=== PATIENT | male | born 1935 | race Caucasian/White ===

== ENCOUNTER 2018-07-30 14:05 | Emergency (ER) | payer MEDICARE, OTHER ==
[~2018-07-30] VITALS: Ht 175.3 cm; Wt 116.8 kg
[~2018-07-30 14:05] MED LIST: CITRATE OF MAG296 ML PO; COUMADIN 5 MG TA5 M1 PO; FOLIC ACID1 MG PO; HYDROCODONE-AP1 EAC6 PO; HYTRIN 5 M5 MG/1 CAP PO; JANTOVEN7.5 MG PO; LISINOPRIL10 MG PO; METFORMIN HCL500 M2 PO; MOBIC15 MG PO; SIMVASTATIN40 MG PO; SULFAZINE EC500 MG PO; TRAMADOL 50 MG50 MG PO
[2018-07-30] MEDS ORDERED: NORCO 5-325 TA1 EACH PO (15:45)
[2018-07-30 15:55] VITALS: BP 133/67
== END 2018-07-30 15:56 | disposition home or self-care (01) ==
LOC: M.ERS 14:05
DX: M25.572 Pain in left ankle and joints of left foot (principal); E11.9 Type 2 diabetes mellitus without complications; I10 Essential (primary) hypertension; Z87.442 Personal history of urinary calculi; Z86.718 Personal history of other venous thrombosis and embolism; Z86.711 Personal history of pulmonary embolism

== ENCOUNTER → 2019-09-17 | Outpatient (CLI) | payer MEDICARE, OTHER ==
[~2019-09-17] MED LIST changes: +NORCO 5-325 TA1 EACH PO
[2019-09-17 07:58] LABS: CREATININE 1.4 mg/dL (0.6-1.3)
== END ==
LOC: M.LAB 05:29 → M.MRI 07:30
PROVIDERS: Internal Medicine Hematology & Oncology
DX: N28.1 Cyst of kidney, acquired (principal); R16.2 Hepatomegaly with splenomegaly, not elsewhere classified

== ENCOUNTER 2019-11-04 11:19 | Inpatient (IN) | payer MEDICARE, OTHER ==
[~2019-11-04] VITALS: Ht 177.8 cm; Wt 117.9 kg
[2019-11-04 11:45] VITALS: BP 169/65
[2019-11-04] MEDS ORDERED: ALLOPURINOL 10100 M3 PO (11:49)
[2019-11-04] MEDS ORDERED: FLOMAX0.4 MG PO (11:50)
[2019-11-04 12:35] LABS: ABSOLUTE LYMPHOCYTES 1.3 thou/uL (0.8-5.3); ABSOLUTE MONOCYTES 1.3 thou/uL (0.0-1.2); ABSOLUTE NEUTROPHILS 6.5 thou/uL (1.6-8.1); BASOPHILS 0.5 %; EOSINOPHILS 0.3 %; HEMOGLOBIN 13.9 gm/dL (14.0-18.0); LYMPHOCYTES 14.6 %; MCH 30.9 pg (26.0-34.0); MCHC 33.9 g/dL (28.0-37.0); MCV 91.1 fL (80.0-100.0); MONOCYTES 14.5 %; MPV 6.9 fl. (7.2-11.1); NUCLEATED RBCS 0 /100WBC; PLATELET COUNT* 130 thou/uL (150-400); POLYS 70.1 %; RDW-CV 18.8 % (10.5-14.5); WBC 9.2 thou/uL (4.0-11.0)
[2019-11-04 12:44] LABS: CALCIUM 8.5 mg/dL (8.5-10.1); CREATININE 1.3 mg/dL (0.6-1.3); POTASSIUM 4.3 mmol/L (3.5-5.1)
[2019-11-04 12:55] LABS: ALBUMIN 3.4 g/dL (3.4-5.0); TOTAL BILIRUBIN 0.8 mg/dL (<0.1-1.0); TOTAL PROTEIN 7.9 g/dL (6.4-8.2)
--- NOTE | 2019-11-04 13:59 | NUR ---
CAME OUT ROOM PT HAVING SEIZURE. 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 PT TRANSPORTED TO CT VIA STRETCHER ON MONITOR WITH [employer] TECH
[2019-11-04 15:29] LABS: URINE BILIRUBIN NEGATIVE (Negative); URINE BLOOD NEGATIVE (Negative); URINE CLARITY CLEAR; URINE COLOR YELLOW; URINE GLUCOSE-RANDOM NEGATIVE (Negative); URINE KETONES NEGATIVE (Negative); URINE LEUKOCYTES-REFLEX NEGATIVE (Negative); URINE NITRITE-REFLEX NEGATIVE (Negative); URINE PROTEIN NEGATIVE (Negative); URINE SPECIFIC GRAVITY 1.025 (1.005-1.030); URINE UROBILINOGEN 0.2 E.U./dl (0.2-1.0)
[2019-11-04 15:34] VITALS: BP 143/68
--- NOTE | 2019-11-04 15:50 | NUR ---
RECEIVED PATIENT BY CART TO PREOP FROM ER FOR BOARDING. PATIENT ALERT AND ORIENTED AND CONVERSING. X2 PERSON TRANSFER FROM CART TO THE BED, PATIENT RELATIVELY WEAK. VS STABLE. NO FAMILY PRESENT DURING TRANSFER. IV ZITHROMYCIN INFUSING UPON ARRIVAL. O2 SAT SHOWING 88-90% ON ROOM AIR. O2 APPLIED AT 2L NC. O2 SAT IMPROVED TO 93% ON 2L NC. RT FOREARM IV IN PLACE. BELONGINGS WITH PATIENT. ORDERS REVIEWED FROM ER. PATIENT DENIES PAIN OR CONCERNS. REFUSING ORAL LIQUIDS AT THIS TIME. DIET ORDERED FOR DINNER.
[2019-11-04 16:00] VITALS: BP 143/67
--- NOTE | 2019-11-04 17:30 | NUR ---
PATIENT TRANSFERRED BY BED TO 311. SON ARRIVAL TO ROOM SHORTLY AFTER TRANSFER. BELONGINGS WITH PATIENT. SON TOOK WALLET, CRUTCHES, AND COAT HOME. PATIENT DENIES PAIN. TAKING IN ORAL LIQUIDS WITHOUT NAUSEA. REPORT TO BEN MORALES. PATIENT DENIES OTHER CONCERNS. CALL LIGHT AND REMOTE WITHIN REACH.
[2019-11-04 17:48] VITALS: BP 128/58
--- NOTE | 2019-11-04 18:08 | NUR ---
PT TO UNIT FROM PACU APPROX 1730 ON [facility] BED.VSS. PT REPORTS REDNESS/SWELLING TO LLE. CXR + FOR PNA. PT UP WITH ASSIST X2 AND GAIT BELT. IV TO RFA, NS AT 100ML/HR. REGULAR DIET. SPUTUM CULTURE ORDERED, BUT UNABLE TO COLLECT AT THIS TIME. PT IN ROOM WITH CALL LIGHT IN REACH. FAMILY AT BEDSIDE. WILL CONTINUE TO MONITOR.
[2019-11-04] MEDS ORDERED: SENNA PLUS TAB1 EACH PO (18:23)
[2019-11-04 19:30] VITALS: BP 132/62
[2019-11-04 20:32] LABS: URIC ACID* 3.8 mg/dL (2.6-7.2)
--- NOTE | 2019-11-05 05:51 | NUR ---
PT ALERT AND ORIENTED. VSS ON RA. HOME MEDS RESTARTED AND GIVEN ORDERED. PT SLEPT WELL THIS SHIFT. PT TO BATHROOM STB ASSIST. PT DENIES PAIN THIS SHIFT. FALL PRECAUTIONS IN PLACE. CALL LIGHT WIHTIN REACH. HOURLY ROUNDINGS MADE. WILL CONTINUE TO MONITOR.
[2019-11-05 07:30] VITALS: BP 128/53
--- NOTE | 2019-11-05 16:14 | NUR ---
SW met with pt to complete initial assessment, introduce self, and SW role. Pt alert, oriented. Pt is [place]. Pt lives at home with . Pt does not have home oxygen and says that he would refuse to wear it anyway. Pt is usually independent with mobility and ADLs. Pt has cane, crutches, RW. SW to continue to follow to assist with safe dc planning.
--- NOTE | 2019-11-05 16:27 | NUR ---
PATIENT UP WITH SBA. VOIDING PER URINAL. IVF SL THIS AFTERNOON PER ORDERS, IV ABX GIVEN ORDERED AND CHANGED TO PO STARTING TOMORROW AM. NO COMPLAINTS OF PAIN. FEET ELEVATED, EDEMA NOTED. PATIENT NOW ON SAT 94%.
[2019-11-05 16:45] VITALS: BP 147/49
[2019-11-05 19:30] VITALS: BP 130/82
[2019-11-06 05:01] LABS: ABSOLUTE LYMPHOCYTES 1.9 thou/uL (0.8-5.3); ABSOLUTE MONOCYTES 0.8 thou/uL (0.0-1.2); ABSOLUTE NEUTROPHILS 5.2 thou/uL (1.6-8.1); BASOPHILS 0.4 %; EOSINOPHILS 0.4 %; HEMATOCRIT 35.9 % (42.0-52.0); HEMOGLOBIN 12.1 gm/dL (14.0-18.0); LYMPHOCYTES 23.5 %; MCH 30.7 pg (26.0-34.0); MCHC 33.6 g/dL (28.0-37.0); MCV 91.4 fL (80.0-100.0); MONOCYTES 10.3 %; MPV 7.2 fl. (7.2-11.1); NUCLEATED RBCS 0 /100WBC; PLATELET COUNT* 124 thou/uL (150-400); POLYS 65.4 %; RBC 3.92 mil/uL (4.50-6.00); RDW-CV 18.9 % (10.5-14.5)
[2019-11-06 05:22] LABS: CALCIUM 7.7 mg/dL (8.5-10.1); CREATININE 1.4 mg/dL (0.6-1.3); URIC ACID* 4.8 mg/dL (2.6-7.2)
[2019-11-06 05:26] LABS: CHOLESTEROL 121 mg/dL (<200); HDL CHOLESTEROL 40 mg/dL (>40); LDL CHOLESTEROL 70 mg/dL (<100); SERUM ASSESSMENT CLEAR; TRIGLYCERIDE 58 mg/dL (<150); VLDL 12 mg/dL (<40)
--- NOTE | 2019-11-06 06:00 | NUR ---
PT ALERT AND ORIENTED. FORGETFUL. ASKS SAME QUESTION REPEATEDLY. VSS ON RA DURING ASSESSMENT. PT ON 2L NC VIA RT. PAIN MED GIVEN PER EMAR. NO IV ACCESS AT THIS TIME. FALL PRECAUTION IN PLACE. CALL LIGHT WITHIN REACH. HOURLY ROUNDINGS MADE. PT SLEPT WELL THIS SHIFT. JODI CONTINUE TO MONITOR.
[2019-11-06 07:50] VITALS: BP 153/73
[2019-11-06 16:00] VITALS: BP 139/61
--- NOTE | 2019-11-06 17:09 | NUR ---
PATIENT UP WITH SBA. PT/OT WORKED WITH PATIENT TODAY. NO IV ACCESS. PATIENT C/O REDNESS TO RIGHT FA, REDNESS AND SWELLING NOTED FROM OLD IV SOTE YESTERDAY, THIS WAS NEW TODAY. ICE PACK IN PLACE, DR. BARTON NOTIFIED. URINAL UTILIZED, BM NOTED TODAY.
[2019-11-06 21:00] VITALS: BP 144/58
[2019-11-06 23:10] LABS: GLYCOHEMOGLOBIN (HGB A1C) 5.4 % (4.8-5.6)
--- NOTE | 2019-11-07 06:28 | NUR ---
PATIENT SLEPT MOST OF THE NIGHT. PATIENT WAS GIVEN PAIN MEDICINE ONCE THIS SHIFT. WILL CONTINUE TO MONITOR.
[2019-11-07 07:55] VITALS: BP 146/67
[2019-11-07 16:00] VITALS: BP 128/74
--- NOTE | 2019-11-07 18:16 | NUR ---
PATIENT RESTING IN UP IN CHAIR. PATIENT IS UP STANDBY ASSIST. PATIENT HAS COMPLAINTS OF PAIN TO BLE BUT STATES IT IS SLIGHTLY BETTER THIS EVENING. PATIENT HAS GOOD APPETITE. PATIENT DENIES ANY NEEDS AT THIS TIME. CALL LIGHT WITHIN REACH.
[2019-11-07 20:30] VITALS: BP 162/66
[2019-11-08 05:24] LABS: CALCIUM 8.2 mg/dL (8.5-10.1); CREATININE 1.3 mg/dL (0.6-1.3); MAGNESIUM 1.7 mg/dL (1.8-2.4)
--- NOTE | 2019-11-08 05:40 | NUR ---
PATIENT SLEPT PART OF THE NIGHT. PATIENT DENIED THE NEED FOR ANY PRN PAIN MEDS. PATIENT COULD POSSIBLY DISCHARGE TODAY OR TOMMORROW. WILL CONTINUE TO MONITOR.
[2019-11-08 07:55] VITALS: BP 149/67
[2019-11-08] MEDS ORDERED: NEURONTIN600 MG PO (10:45)
[2019-11-08] MEDS ORDERED: COZAAR 25 MG TA25 M2 PO (10:45)
[2019-11-08] MEDS ORDERED: PREDNISONE 20 M20 MG PO (10:45)
[2019-11-08] MEDS ORDERED: GLUCOPHAGE500 MG PO (10:45)
[2019-11-08] MEDS ORDERED: CEFDINIR300 MG PO (10:45)
[2019-11-08] MEDS ORDERED: ASPIRIN325 PO (10:45)
[2019-11-08 11:55] VITALS: BP 149/67
--- NOTE | 2019-11-08 12:33 | NUR ---
[facility] NOTIFIED OF HH REFERRAL. H&P, DISCHARGE SUMMARY AND FACE SHEET FAXED. AWAITING CALL FROM [facility] HH RN. ANDREW BARLOW UPDATED.
--- NOTE | 2019-11-08 14:30 | NUR ---
PATIENT DISCHARGED TO HOME WITH HOME HEALTH. DISCHARGE ORDERS, H&P AND FACESHEETS FAXED TO [facility]. DISCHARGE PAPERS REVIEWED AND SINED. PRESCRIPTIONS AND INFORMATION SHEETS GIVEN. NO IV. PATIENT DENIES ANY FURTHER NEEDS. PATIENT TAKEN BY WHEELCHAIR TO EXIT. LEFT WITH .
--- NOTE | 2019-11-11 13:54 | EKG ---
[place] [address] ELECTROCARDIOGRAM REPORT Name: SOPHIE GOLDBERG Room: [address] IN .R.#: [id number] Admission: 11/04/19 Attend Phys: Manjula kohli Sa Discharge: 11/08/19 Date of : 37 Date of Service: 11/04/19 1340 Report #: [id number] THIS REPORT FOR: cc: Antwan Srivastava Bradley L. DO Blick, David R. MD [facility] THIS REPORT FOR: //name// [facility] ED Test Date: 2019-11-04 Test Time: 13:40:32 Pat Name: SOPHIE GOLDBERG Department: Room: [facility] Gender: M Senior Abap Developer: : 1935 Requested By: Yogi Shore Order Number: [id number] MD: Sophie Anaya Measurements Intervals [place] Rate: 77 P: 65 NE: 164 QRS: -19 QRSD: 101 T: 51 QT: 411 QTc: 466 Interpretive Statements Sinus rhythm Borderline left axis deviation Abnormal R-wave progression, late transition Compared to ECG 05/09/2013 23:32:53 No significant changes Electronically Signed On 11-04-2019 16:21:23 STUNT DOUBLE by Sophie Anaya [email or web address] <ELECTRONICALLY SIGNED> By: Sophie Anaya MD, [facility] 11/04/19 1621 1340 1340 Sophie Anaya MD, [facility] /EPI
== END 2019-11-08 14:30 | disposition home health service (06) | DRG 193 ==
LOC: M.ERS 11:19 → M.TBA-ER 14:03 → M.3W 14:03
PROVIDERS: Physician Assistant; ADMIT Family Medicine
DX: J18.9 Pneumonia, unspecified organism (principal); J80 Acute respiratory distress syndrome; K51.90 Ulcerative colitis, unspecified, without complications; M79.2 Neuralgia and neuritis, unspecified; M25.572 Pain in left ankle and joints of left foot; I10 Essential (primary) hypertension; N40.0 Benign prostatic hyperplasia without lower urinary tract symptoms; I80.8 Phlebitis and thrombophlebitis of other sites; E11.40 Type 2 diabetes mellitus with diabetic neuropathy, unspecified; E78.5 Hyperlipidemia, unspecified; M10.9 Gout, unspecified; Z91.14 Patient's other noncompliance with medication regimen; Z86.711 Personal history of pulmonary embolism; Z79.01 Long term (current) use of anticoagulants; Z87.442 Personal history of urinary calculi; Z86.718 Personal history of other venous thrombosis and embolism; Z79.84 Long term (current) use of oral hypoglycemic drugs; Z79.891 Long term (current) use of opiate analgesic; Z79.899 Other long term (current) drug therapy; Z83.3 Family history of diabetes mellitus; Z82.49 Family history of ischemic heart disease and other diseases of the circulatory system; Z87.891 Personal history of nicotine dependence

== ENCOUNTER 2020-01-18 14:05 | Inpatient (IN) | payer MEDICARE, OTHER ==
[~2020-01-18] VITALS: Ht 172.7 cm; Wt 124.9 kg
[~2020-01-18 14:05] MED LIST changes: +ALLOPURINOL 10100 M3 PO; +ASPIRIN325 PO; +CEFDINIR300 MG PO; +COZAAR 25 MG TA25 M2 PO; +FLOMAX0.4 MG PO; +GLUCOPHAGE500 MG PO; +NEURONTIN600 MG PO; +PREDNISONE 20 M20 MG PO; +SENNA PLUS TAB1 EACH PO
[2020-01-18 14:18] VITALS: BP 135/71
[2020-01-18 14:47] LABS: ABSOLUTE EOSINOPHILS 0.1 thou/uL (0.0-0.7); ABSOLUTE LYMPHOCYTES 1.2 thou/uL (0.8-5.3); ABSOLUTE MONOCYTES 1.1 thou/uL (0.0-1.2); ABSOLUTE NEUTROPHILS 5.6 thou/uL (1.6-8.1); BASOPHILS 0.6 %; EOSINOPHILS 0.8 %; HEMATOCRIT 41.5 % (42.0-52.0); HEMOGLOBIN 14.3 gm/dL (14.0-18.0); LYMPHOCYTES 14.7 %; MCH 32.8 pg (26.0-34.0); MCHC 34.4 g/dL (28.0-37.0); MCV 95.4 fL (80.0-100.0); MONOCYTES 13.7 %; MPV 6.9 fl. (7.2-11.1); NUCLEATED RBCS 0 /100WBC; PLATELET COUNT* 120 thou/uL (150-400); POLYS 70.2 %; RBC 4.35 mil/uL (4.50-6.00); RDW-CV 19.2 % (10.5-14.5); WBC 7.9 thou/uL (4.0-11.0)
[2020-01-18 15:00] LABS: ANION GAP 9 mmol/L (7-16); BUN 13 mg/dL (7-18); CALCIUM 8.7 mg/dL (8.5-10.1); CHLORIDE 103 mmol/L (98-107); CO2 26 mmol/L (21-32); CREATININE 1.4 mg/dL (0.6-1.3); GLUCOSE 132 mg/dL (70-99); POTASSIUM 4.2 mmol/L (3.5-5.1); SODIUM 138 mmol/L (136-145)
[2020-01-18 15:03] LABS: APTT 26.5 Seconds (25.0-31.3); INR 1.1; PROTIME 10.8 Seconds (9.20-11.50)
[2020-01-18 15:14] LABS: ALBUMIN 3.5 g/dL (3.4-5.0); ALKALINE PHOSPHATASE 91 U/L (46-116); CK-MB MASS < 0.5 ng/mL (<0.5-3.6); LIPASE 91 U/L (73-393); MAGNESIUM 1.7 mg/dL (1.8-2.4); NT-PRO BRAIN NAT PEPTIDE 267 pg/mL (<300); SGOT 23 U/L (15-37); SGPT 25 U/L (30-65); TOTAL BILIRUBIN 0.7 mg/dL (<0.1-1.0)
--- NOTE | 2020-01-18 15:55 | EKG ---
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
[2020-01-18 20:04] VITALS: BP 105/57
[2020-01-19] VITALS (7 sets, daily range): BP systolic 80–121; BP diastolic 46–57
[2020-01-19 12:13] LABS: CALCIUM 7.9 mg/dL (8.5-10.1)
[2020-01-19 12:15] LABS: CREATININE 2.6 mg/dL (0.6-1.3)
--- NOTE | 2020-01-19 13:54 | 2DMMODE ---
[place] [address] 2 D/M-MODE ECHOCARDIOGRAM Name: SOPHIE GOLDBERG Room: [address] IN [facility].#: [id number] Admission: 01/18/20 Attend Phys: Eboni Nelson, Discharge: Date of : 37 Date of Service: 01/19/20 1352 Report #: [id number] THIS REPORT FOR: cc: Antwan Srivastava Bradley L. DO Liston, Michael J. MD [facility] ~ APPROVED REPORT Study performed: 01/19/2020 10:38:38 EXAM: Comprehensive 2D, Doppler, and color-flow Echocardiogram Patient Location: In-Patient Room #: [facility] Status: routine BSA: 2.29 HR: 87 bpm BP: 96/54 mmHg Rhythm: NSR Other Information Study Quality: Good Indications Pericardial Effusion 2D Dimensions IVSd: 14.05 (7-11mm) LVOT Diam: 22.72 (18-24mm) LVDd: 56.16 mm PWd: 11.01 (7-11mm) Ascending Ao: 37.96 (22-36mm) LVDs: 43.27 (25-40mm) Aortic Root: 38.10 mm Volumes Left Atrial Volume (Systole) LA ESV Index: 28.60 mL/m2 Aortic Valve AoV Peak Reji.: 1.50 m/s AO Peak Gr.: 8.97 mmHg LVOT Max P.22 mmHg AO Mean Gr.: 5.15 mmHg LVOT Mean P.91 mmHg LVOT Max V: 1.52 m/s AO V2 VTI: 25.46 cm LVOT Mean V: 0.88 m/s ANNIKA (VTI): 3.84 cm2 LVOT V1 VTI: 24.12 [place] [address] 2 D/M-MODE ECHOCARDIOGRAM Name: SOPHIE GOLDBERG Room: [address] IN [facility].#: [id number] Admission: 01/18/20 Attend Phys: Eboni Nelson, Discharge: Date of : 37 Date of Service: 01/19/20 1352 Report #: [id number] Mitral Valve E/A Ratio: 0.76 MV Decel. Time: 292.14 ms MV E Max Reji.: 0.75 m/s MV PHT: 84.72 ms MVA (PHT): 2.60 cm2 TDI E/Lateral E': 8.33 E/Medial E': 9.38 Medial E' Reji.: 0.08 m/s Lateral E' Reji.: 0.09 m/s Pulmonary Valve PV Peak Reji.: 1.22 m/s PV Peak Gr.: 5.92 mmHg Tricuspid Valve RAP Estimate: 5.00 mmHg TR Peak Gr.: 34.13 mmHg RVSP: 39.00 mmHg PA Pressure: 39.00 mmHg Left Ventricle The left ventricle is normal size. There is normal LV segmental wall motion. There is normal left ventricular wall thickness. Left ventricular systolic function is normal. LVEF is 55-60%. Grade I - abnormal relaxation pattern. Right Ventricle The right ventricle is normal size. The right ventricular systolic function is normal. Atria Left atrium is moderately dilated. Right atrium is mildly dilated. Aortic Valve The aortic valve is normal in structure. No aortic regurgitation is present. There is no aortic valvular stenosis. Mitral Valve The mitral valve is normal in structure. There is no mitral valve regurgitation noted. No evidence of mitral valve stenosis. Tricuspid Valve The tricuspid valve is normal in structure. Trace tricuspid regurgitation. The RVSP is 35-40 [place] [address] 2 D/M-MODE ECHOCARDIOGRAM Name: SOPHIE GOLDBERG Room: [address]#: [id number] Admission: 01/18/20 Attend Phys: Eboni Nelson, Discharge: Date of : 37 Date of Service: 01/19/20 1352 Report #: [id number] Pulmonic Valve The pulmonary valve is normal in structure. There is no pulmonic valvular regurgitation. Great Vessels The aortic root is normal in size. IVC is normal in size and collapses >50% with inspiration. Pericardium There is a small circumferential pericardial effusion with no evidence of tamponade. <Conclusion> The left ventricle is normal size. There is normal left ventricular wall thickness. Left ventricular systolic function is normal. LVEF is 55-60%. Grade I - abnormal relaxation pattern. Left atrium is moderately dilated. Right atrium is mildly dilated. Trace tricuspid regurgitation. The RVSP is 35-40 mmHg. IVC is normal in size and collapses >50% with inspiration. There is a small circumferential pericardial effusion with no evidence of tamponade. <ELECTRONICALLY SIGNED> By: Ebenezer Hernandez MD, FACC 01/19/20 1352 1352 1352 Ebenezer Hernandez MD, FACC /INF
[2020-01-20 04:39] VITALS: BP 114/48
[2020-01-20 06:00] LABS: HEMATOCRIT 33.4 % (42.0-52.0); HEMOGLOBIN 11.4 gm/dL (14.0-18.0); MCH 32.8 pg (26.0-34.0); MCHC 34.2 g/dL (28.0-37.0); MCV 95.9 fL (80.0-100.0); MPV 7.1 fl. (7.2-11.1); RBC 3.48 mil/uL (4.50-6.00); RDW-CV 19.2 % (10.5-14.5); WBC 6.7 thou/uL (4.0-11.0)
[2020-01-20 06:25] LABS: CREATININE 1.9 mg/dL (0.6-1.3); POTASSIUM 4.4 mmol/L (3.5-5.1)
[2020-01-20 08:00] VITALS: BP 117/51
--- NOTE | 2020-01-20 10:37 | CON ---
[address] [address] CONSULTATION Name: SOPHIE GOLDBERG Room: [address] IN M.R.#: [id number] Admission: 01/18/20 Attend Phys: Eboni Nelson MD Discharge: Date of : 37 Report #: [id number] THIS REPORT FOR: //name// cc: Antwan Srivastava Bradley L. DO ~ THIS REPORT FOR: //name// CC: Antwan Nelson DATE OF SERVICE: 01/19/2020 RENAL CONSULTATION REASON FOR CONSULTATION: Right renal mass. Thank you very much for asking me to see the patient. HISTORY OF PRESENT ILLNESS: The patient is an 84-year-old male patient with chronic kidney disease stage 3 and a known right renal mass. He was admitted to [facility] with a chief complaint of chest discomfort. He has had no fevers or chills. No shortness of breath. No nausea or vomiting. No lower extremity swelling. He has a history of diabetes. REVIEW OF SYSTEMS: All other systems are negative. A renal consultation requested due to the right renal mass. PAST MEDICAL HISTORY: 1. Chronic kidney disease stage 3. He has a creatinine of 1.4, GFR 48. In 2008, his creatinine was 1.4 and his creatinine ranges 1.1-1.4. 2. Right renal mass 4.5 x 5.3 cm. This is known issue for him. [facility] They did not recommend surgery or cryoablation. 3. Hypertension. 4. Diabetes. 5. History of kidney stones. 6. History of deep venous thrombosis and pulmonary embolus. He has an IVC filter in place. 7. Benign prostatic hypertrophy. 8. Gout. ALLERGIES: He has no known drug allergies. SOCIAL HISTORY: Negative for tobacco use or alcohol use. FAMILY HISTORY: [place] [address] CONSULTATION Name: SOPHIE GOLDBERG Jermaine Room: [address]#: [id number] Admission: 01/18/20 Attend Phys: Eboni Nelson MD Discharge: Date of : 37 Report #: [id number] CURRENT MEDICATIONS: Metformin 500 mg daily, famotidine 20 mg daily, aspirin 325 mg daily, tamsulosin 0.4 mg daily, allopurinol 300 mg daily, Protonix 40 mg at bedtime, and sulfasalazine 1500 mg at bedtime. PHYSICAL EXAMINATION: VITAL SIGNS: Blood pressure is 112/52, pulse 80, temperature 98.1. GENERAL: He is awake and alert. Mood and affect were at baseline. NECK: No jugular venous distention. CHEST: Clear. HEART: Regular rate and rhythm without friction rub. ABDOMEN: Soft and nontender. EXTREMITIES: There is no lower extremity edema. LABORATORY DATA: Creatinine 1.4, GFR 48. On CT scan, he had a right kidney mass as described above. IMPRESSION: 1. Chronic kidney disease, stage 3. He has a creatinine of 1.4, GFR 48. In June 2009, his creatinine was 1.4 and his creatinine ranges 1.1-1.4. 2. Right renal mass followed by [facility]. 3. Chest pain, resolved with negative troponin. 4. Pericardial effusion. Cardiology is following. 5. Hypertension. 6. Diabetes. 7. History of deep venous thrombosis, pulmonary embolus and inferior vena cava filter. 8. Benign prostatic hypertrophy. 9. Gout. PLAN: 1. Agree with workup for pericardial effusion. 2. No renal/urology workup required. 3. Check laboratory data in the morning. Further plans will depend on his clinical course. Thank you very much for asking me to see the patient and allowing me to assist in his care. <ELECTRONICALLY SIGNED> By: Praveen Damon MD 01/20/20 1037 1153 1207Praveen Damon MD /nt
[2020-01-20 17:08] VITALS: BP 128/57
[2020-01-20 20:00] VITALS: BP 101/48
[2020-01-21 00:37] VITALS: BP 102/58
[2020-01-21 04:00] VITALS: BP 107/38
[2020-01-21 05:33] LABS: ABSOLUTE EOSINOPHILS 0.1 thou/uL (0.0-0.7); ABSOLUTE LYMPHOCYTES 1.3 thou/uL (0.8-5.3); ABSOLUTE MONOCYTES 0.5 thou/uL (0.0-1.2); ABSOLUTE NEUTROPHILS 3.8 thou/uL (1.6-8.1); BASOPHILS 0.5 %; EOSINOPHILS 1.2 %; LYMPHOCYTES 23.3 %; MCH 32.9 pg (26.0-34.0); MCHC 34.5 g/dL (28.0-37.0); MCV 95.4 fL (80.0-100.0); MONOCYTES 9.6 %; MPV 6.8 fl. (7.2-11.1); NUCLEATED RBCS 0 /100WBC; PLATELET COUNT* 127 thou/uL (150-400); POLYS 65.4 %; RBC 3.35 mil/uL (4.50-6.00); RDW-CV 18.9 % (10.5-14.5); WBC 5.7 thou/uL (4.0-11.0)
[2020-01-21 05:45] LABS: ALBUMIN 2.8 g/dL (3.4-5.0); CREATININE 1.6 mg/dL (0.6-1.3); TOTAL BILIRUBIN 0.4 mg/dL (<0.1-1.0); TOTAL PROTEIN 6.8 g/dL (6.4-8.2)
[2020-01-21 08:00] VITALS: BP 120/43
[2020-01-21 12:39] VITALS: BP 158/74
[2020-01-21 12:44] VITALS: BP 158/74
== END 2020-01-21 14:20 | disposition home or self-care (01) | DRG 314 ==
LOC: M.ERS 14:05 → M.2W 16:08 → M.TBA-ER 16:08 → M.2W 20:36
PROVIDERS: Family Medicine; Internal Medicine Nephrology; Nurse Practitioner; ADMIT Internal Medicine
DX: I31.3 Pericardial effusion (noninflammatory) (principal); N17.0 Acute kidney failure with tubular necrosis; C64.1 Malignant neoplasm of right kidney, except renal pelvis; I20.9 Angina pectoris, unspecified; R91.1 Solitary pulmonary nodule; I12.9 Hypertensive chronic kidney disease with stage 1 through stage 4 chronic kidney disease, or unspecified chronic kidney disease; K57.90 Diverticulosis of intestine, part unspecified, without perforation or abscess without bleeding; M54.9 Dorsalgia, unspecified; E11.22 Type 2 diabetes mellitus with diabetic chronic kidney disease; E11.65 Type 2 diabetes mellitus with hyperglycemia; N18.3 Chronic kidney disease, stage 3 (moderate); R06.00 Dyspnea, unspecified; N28.89 Other specified disorders of kidney and ureter; R59.9 Enlarged lymph nodes, unspecified; N40.0 Benign prostatic hyperplasia without lower urinary tract symptoms; M10.9 Gout, unspecified; E86.0 Dehydration; Z86.718 Personal history of other venous thrombosis and embolism; Z87.01 Personal history of pneumonia (recurrent); Z87.442 Personal history of urinary calculi; Z79.82 Long term (current) use of aspirin; Z79.84 Long term (current) use of oral hypoglycemic drugs; Z87.891 Personal history of nicotine dependence; Z83.3 Family history of diabetes mellitus; Z82.49 Family history of ischemic heart disease and other diseases of the circulatory system

== ENCOUNTER 2020-11-03 12:53 | Inpatient (IN) | payer MEDICARE, OTHER ==
[~2020-11-03] VITALS: Ht 175.3 cm; Wt 109.8 kg
[2020-11-03 13:15] VITALS: BP 152/61
[2020-11-03] MEDS ORDERED: FUROSEMIDE 40 M40 MG PO (13:19)
[2020-11-03] MEDS ORDERED: JANTOVEN6 MG PO (13:19)
[2020-11-03] MEDS ORDERED: SIMVASTATIN80 MG PO ×2 (13:19→21:16)
[2020-11-03] MEDS ORDERED: VITAMIN D-40010 MCG PO (13:20)
[2020-11-03] MEDS ORDERED: FINASTERIDE5 MG PO (13:20)
[2020-11-03] MEDS ORDERED: FOLIC ACID1 MG PO (13:20)
[2020-11-03 14:00] LABS: ABSOLUTE LYMPHOCYTES 0.6 thou/uL (0.8-5.3); ABSOLUTE MONOCYTES 0.2 thou/uL (0.0-1.2); ABSOLUTE NEUTROPHILS 1.2 thou/uL (1.6-8.1); BASOPHILS 0.3 %; EOSINOPHILS 0.2 %; HEMATOCRIT 34.1 % (42.0-52.0); HEMOGLOBIN 11.6 gm/dL (14.0-18.0); LYMPHOCYTES 29.9 %; MCH 32.3 pg (26.0-34.0); MCHC 34.1 g/dL (28.0-37.0); MCV 94.9 fL (80.0-100.0); MONOCYTES 10.8 %; MPV 7.2 fl. (7.2-11.1); NUCLEATED RBCS 0 /100WBC; PLATELET COUNT* 82 thou/uL (150-400); POLYS 58.8 %; RBC 3.59 mil/uL (4.50-6.00); RDW-CV 17.3 % (10.5-14.5)
[2020-11-03 14:08] LABS: CALCIUM 7.9 mg/dL (8.5-10.1); CREATININE 1.4 mg/dL (0.6-1.3); POTASSIUM 4.1 mmol/L (3.5-5.1)
[2020-11-03 14:18] LABS: ALBUMIN 2.9 g/dL (3.4-5.0); TOTAL BILIRUBIN 0.6 mg/dL (<0.1-1.0); TOTAL PROTEIN 7.1 g/dL (6.4-8.2)
--- NOTE | 2020-11-03 15:54 | EKG ---
[place] [address] ELECTROCARDIOGRAM REPORT Name: SOPHEI GOLDBERG Room: [place] [address] ADM IN [facility].#: [id number] Admission: 11/03/20 Attend Phys: Tara Trevino MD Discharge: Date of : 37 Date of Service: 11/03/20 1323 Report #: [id number] THIS REPORT FOR: //name// [facility] ED Test Date: 2020-11-03 Test Time: 13:23:17 Pat Name: SOPHIE GOLDBERG Department: Room: [facility] Gender: M Setter Off: ELVIN : 1935 Requested By: Yogi Shore Order Number: [id number] MD: Ebenezer Hernandez Measurements Intervals [place] Rate: 78 P: 38 ND: 100 QRS: 21 QRSD: 101 T: 62 QT: 426 QTc: 486 Interpretive Statements Sinus rhythm Atrial premature complex Short ND interval Borderline prolonged QT interval Compared to ECG 01/18/2020 14:14:14 Atrial premature complex(es) now present Short ND interval now present Electronically Signed On 11-03-2020 15:54:14 INPATIENT NURSING AIDE by Ebenezer Hernandez [email or web address] <ELECTRONICALLY SIGNED> By: Ebenezer Hernandez MD, FACC 11/03/20 1554 1323 1323 Ebenezer Hernandez MD, FAC /EPI
[2020-11-03 16:57] VITALS: BP 130/52
[2020-11-03 17:50] VITALS: BP 127/61
[2020-11-03 19:07] LABS: URINE BILIRUBIN NEGATIVE (Negative); URINE BLOOD 1+ (Negative); URINE CLARITY CLEAR; URINE COLOR YELLOW; URINE GLUCOSE-RANDOM NEGATIVE (Negative); URINE KETONES NEGATIVE (Negative); URINE LEUKOCYTES-REFLEX NEGATIVE (Negative); URINE NITRITE-REFLEX NEGATIVE (Negative); URINE PROTEIN 2+ (Negative); URINE SPECIFIC GRAVITY 1.025 (1.005-1.030)
[2020-11-03 19:16] LABS: AMORPHOUS URATES Many /LPF (None Seen); BACTERIA-REFLEX 1-9 Few /HPF (None Seen); HYALINE CASTS 0-3 Few /LPF (None Seen); SQUAMOUS 0-3 Few /LPF (0-3); URINE RBC 0-2 Rare /HPF (0-2); URINE WBC-REFLEX 0-5 Rare /HPF (0-5)
[2020-11-03] MEDS ORDERED: METFORMIN (21:13)
[2020-11-03] MEDS ORDERED: COZAAR 25 MG TA25 M1 PO (21:15)
[2020-11-03 22:33] LABS: PROTIME 78.1 Seconds (9.20-11.50)
[2020-11-03 22:40] LABS: INR 8.4
[2020-11-04 05:31] LABS: HEMATOCRIT 31.7 % (42.0-52.0); HEMOGLOBIN 10.8 gm/dL (14.0-18.0); MCH 32.4 pg (26.0-34.0); MCHC 34.1 g/dL (28.0-37.0); RBC 3.34 mil/uL (4.50-6.00); RDW-CV 17.1 % (10.5-14.5)
[2020-11-04 05:38] LABS: CALCIUM 7.5 mg/dL (8.5-10.1); CREATININE 1.3 mg/dL (0.6-1.3); POTASSIUM 4.8 mmol/L (3.5-5.1)
[2020-11-04 06:06] LABS: WBC 1.7 thou/uL (4.0-11.0)
[2020-11-04 08:40] VITALS: BP 146/70
[2020-11-04 14:39] LABS: PROTIME > 90.0 Seconds (9.20-11.50)
[2020-11-04 14:42] LABS: INR 9.8
[2020-11-04 16:54] VITALS: BP 125/62
[2020-11-04 20:00] VITALS: BP 117/51; BP 118/56
[2020-11-05 06:33] LABS: HEMOGLOBIN 11.5 gm/dL (14.0-18.0); MCH 32.2 pg (26.0-34.0); MCHC 33.8 g/dL (28.0-37.0); MCV 95.3 fL (80.0-100.0); MPV 7.4 fl. (7.2-11.1); RBC 3.57 mil/uL (4.50-6.00); RDW-CV 17.2 % (10.5-14.5); WBC 2.9 thou/uL (4.0-11.0)
[2020-11-05 06:46] LABS: CREATININE 1.2 mg/dL (0.6-1.3); POTASSIUM 4.7 mmol/L (3.5-5.1)
[2020-11-05 06:48] LABS: PROTIME 35.3 Seconds (9.20-11.50)
[2020-11-05 06:49] LABS: INR 3.6
[2020-11-05 07:40] VITALS: BP 155/62
[2020-11-05] MEDS ORDERED: JANTOVEN5 MG PO (07:51)
[2020-11-05 12:15] VITALS: BP 155/62
[2020-11-05 13:16] VITALS: BP 155/62
== END 2020-11-05 15:30 | disposition home health service (06) | DRG 177 ==
LOC: M.ERS 12:53 → M.TBA-ER 14:14 → M.ORTHSURG 14:14
PROVIDERS: Physician Assistant; ADMIT Family Medicine; ATTEND Family Medicine
PROC: XW033E5 Introduction of Remdesivir Anti-infective into Peripheral Vein, Percutaneous Approach, New Technology Group 5 (ICD-10-PCS; principal; 2020-11-03)
DX: U07.1 COVID-19 (principal); J96.01 Acute respiratory failure with hypoxia; N17.0 Acute kidney failure with tubular necrosis; J12.82 Pneumonia due to coronavirus disease 2019; E87.1 Hypo-osmolality and hyponatremia; I12.9 Hypertensive chronic kidney disease with stage 1 through stage 4 chronic kidney disease, or unspecified chronic kidney disease; M10.9 Gout, unspecified; N40.0 Benign prostatic hyperplasia without lower urinary tract symptoms; E11.22 Type 2 diabetes mellitus with diabetic chronic kidney disease; N18.30 Chronic kidney disease, stage 3 unspecified; R63.4 Abnormal weight loss; Z68.35 Body mass index [BMI] 35.0-35.9, adult; Z86.718 Personal history of other venous thrombosis and embolism; Z86.711 Personal history of pulmonary embolism; Z87.01 Personal history of pneumonia (recurrent); Z87.891 Personal history of nicotine dependence; Z79.899 Other long term (current) drug therapy; Z79.01 Long term (current) use of anticoagulants; Z79.84 Long term (current) use of oral hypoglycemic drugs

== ENCOUNTER 2021-04-18 11:07 | Emergency (ER) | payer MEDICARE, OTHER ==
[~2021-04-18] VITALS: Ht 175.3 cm; Wt 116.1 kg
[~2021-04-18 11:07] MED LIST changes: +COZAAR 25 MG TA25 M1 PO; +FINASTERIDE5 MG PO; +FUROSEMIDE 40 M40 MG PO; +JANTOVEN5 MG PO; +JANTOVEN6 MG PO; +METFORMIN; +SIMVASTATIN80 MG PO; +VITAMIN D-40010 MCG PO
[2021-04-18 11:14] VITALS: BP 167/88
[2021-04-18] MEDS ORDERED: NORCO5 PO (11:17)
[2021-04-18 12:34] LABS: ABSOLUTE EOSINOPHILS 0.1 thou/uL (0.0-0.7); ABSOLUTE LYMPHOCYTES 1.9 thou/uL (0.8-5.3); ABSOLUTE MONOCYTES 0.5 thou/uL (0.0-1.2); ABSOLUTE NEUTROPHILS 3.3 thou/uL (1.6-8.1); BASOPHILS 0.3 %; EOSINOPHILS 1.3 %; HEMATOCRIT 36.5 % (42.0-52.0); HEMOGLOBIN 12.5 gm/dL (14.0-18.0); LYMPHOCYTES 32.5 %; MCH 34.7 pg (26.0-34.0); MCHC 34.3 g/dL (28.0-37.0); MONOCYTES 8.8 %; MPV 6.9 fl. (7.2-11.1); NUCLEATED RBCS 0 /100WBC; PLATELET COUNT* 102 thou/uL (150-400); POLYS 57.1 %; RBC 3.62 mil/uL (4.50-6.00); RDW-CV 16.7 % (10.5-14.5); WBC 5.7 thou/uL (4.0-11.0)
[2021-04-18 12:45] LABS: CALCIUM 8.2 mg/dL (8.5-10.1); CREATININE 1.4 mg/dL (0.6-1.3); POTASSIUM 4.6 mmol/L (3.5-5.1)
[2021-04-18 12:46] LABS: INR 2.4; PROTIME 24.5 Seconds (9.20-11.50)
[2021-04-18 12:56] LABS: ALBUMIN 3.6 g/dL (3.4-5.0); MAGNESIUM 1.8 mg/dL (1.8-2.4); TOTAL BILIRUBIN 0.7 mg/dL (<0.1-1.0); TOTAL PROTEIN 7.5 g/dL (6.4-8.2)
--- NOTE | 2021-04-18 14:47 | NUR ---
PT GIVEN SANDWICH PER REQUEST
[2021-04-18] MEDS ORDERED: HYDROCODON-ACE1 EAC7 PO ×2 (15:39→15:55)
[2021-04-18] MEDS ORDERED: FLEXERIL PO ×2 (15:39→15:55)
--- NOTE | 2021-04-18 15:49 | EKG ---
[place] [address] ELECTROCARDIOGRAM REPORT Name: SOPHIE GOLDBERG Room: [place] [address] ADM IN [facility]#: [id number] Admission: 04/18/21 Attend Phys: Kirby Banks Discharge: Date of : 37 Date of Service: 04/18/21 1249 Report #: [id number] THIS REPORT FOR: //name// [facility] ED Test Date: 2021-04-18 Test Time: 12:49:40 Pat Name: SOPHIE GOLDBERG Department: Room: [facility] Gender: M Home Health Travel Ot: 14 : 1935 Requested By: Scout Allen Order Number: [id number] MD: Ebenezer Hernandez Measurements Intervals [place] Rate: 70 P: 58 MT: 168 QRS: 1 QRSD: 104 T: 48 QT: 578 QTc: 624 Interpretive Statements Sinus rhythm Nonspecific T abnormalities, lateral leads Compared to ECG 11/03/2020 13:23:17 T-wave abnormality now present Atrial premature complex(es) no longer present Short MT interval no longer present Electronically Signed On 04-18-2021 15:41:02 CDT by Ebenezer Hernandez Electronically Signed On 04-18-2021 15:48:55 CDT by Ebenezer Hernandez [email or web address] <ELECTRONICALLY SIGNED> By: Ebenezer Hernandez MD, [facility] 04/18/21 1548 1249 1249 Ebenezer Hernandez MD, [facility] /EPI
[2021-04-18 15:55] VITALS: BP 171/78
--- NOTE | 2021-04-19 09:20 | EKG ---
[place] [address] ELECTROCARDIOGRAM REPORT Name: EBER GOLDBERG Room: [facility]#: [id number] Admission: 04/18/21 Attend Phys: Discharge: 04/18/21 Date of : 37 Date of Service: 04/18/21 1507 Report #: [id number] THIS REPORT FOR: //name// [facility] ED Test Date: 2021-04-18 Test Time: 15:07:35 Pat Name: EBER GOLDBERG Department: Room: [place] [address] Gender: M Chief Program Officer: 14 : 1935 Requested By: Mirela Chong Order Number: [id number] MD: Eber Anaya Measurements Intervals [place] Rate: 66 P: 57 [place]: 173 QRS: -15 QRSD: 100 T: 53 QT: 452 QTc: 474 Interpretive Statements Sinus rhythm Ventricular premature complex Borderline left axis deviation Compared to ECG 04/18/2021 12:49:40 Ventricular premature complex(es) now present T-wave abnormality no longer present Electronically Signed On 04-19-2021 9:20:41 CDT by Eber Anaya [email or web address] <ELECTRONICALLY SIGNED> By: Eber Anaya MD, [facility] 04/19/21 0920 1507 1507 Eber Anaya MD, [facility] /EPI
== END 2021-04-18 16:08 | disposition home or self-care (01) ==
LOC: M.ERS 11:07 → M.TBA-ER 14:05
PROVIDERS: Emergency Medicine Emergency Medical Services
DX: M25.511 Pain in right shoulder (principal); Z20.822 Contact with and (suspected) exposure to COVID-19; E11.9 Type 2 diabetes mellitus without complications; I10 Essential (primary) hypertension; Z79.01 Long term (current) use of anticoagulants; Z79.899 Other long term (current) drug therapy; Z87.442 Personal history of urinary calculi; Z86.718 Personal history of other venous thrombosis and embolism; Z86.711 Personal history of pulmonary embolism

== ENCOUNTER → 2021-11-21 | Outpatient (CLI) | payer MEDICARE, OTHER ==
[~2021-11-21] MED LIST changes: +FLEXERIL PO; +HYDROCODON-ACE1 EAC7 PO; +NORCO5 PO
--- NOTE | 2021-11-21 13:47 | 2DMMODE ---
[place] [address] 2 D/M-MODE ECHOCARDIOGRAM Name: SOPHIE GOLDBERG Room: [facility]#: [id number] Admission: 11/21/21 Attend Phys: Mirela Chong RN Discharge: Date of : 37 Date of Service: 11/21/21 1347 Report #: [id number] THIS REPORT FOR: cc: Antwan Srivastava Bradley L. DO Biggs, F. Douglas MD [facility] ~ APPROVED REPORT Study performed: 11/21/2021 13:43:46 EXAM: Comprehensive 2D, Doppler, and color-flow Echocardiogram Patient Location: Out-Patient BSA: 2.31 HR: 77 bpm BP: 120/72 mmHg Other Information Study Quality: Good Indications Pericardial Effusion 2D Dimensions IVSd: 13.59 (7-11mm) LVOT Diam: 20.72 (18-24mm) LVDd: 59.08 mm PWd: 10.44 (7-11mm) Ascending Ao: 35.95 (22-36mm) LVDs: 35.47 (25-40mm) Aortic Root: 32.41 mm Volumes Left Atrial Volume (Systole) LA ESV Index: 26.90 mL/m2 Aortic Valve AoV Peak Reji.: 1.18 m/s AO Peak Gr.: 5.56 mmHg LVOT Max P.14 mmHg AO Mean Gr.: 2.76 mmHg LVOT Mean P.74 mmHg LVOT Max V: 1.02 m/s AO V2 VTI: 21.97 cm LVOT Mean V: 0.59 m/s ANNIKA (VTI): 3.32 cm2 LVOT V1 VTI: 21.65 cm AI [place]: 1.99 m/s2 AI PHT: 556.89 [place] [address] 2 D/M-MODE ECHOCARDIOGRAM Name: SOPHIE GOLDBERG Room: [facility]#: [id number] Admission: 11/21/21 Attend Phys: Mirela Chong RN Discharge: Date of : 37 Date of Service: 11/21/21 1347 Report #: [id number] Mitral Valve E/A Ratio: 0.82 MV Decel. Time: 213.41 ms MV E Max Reji.: 0.81 m/s MV PHT: 61.89 ms MVA (PHT): 3.55 cm2 TDI E/Lateral E': 8.10 E/Medial E': 7.36 Medial E' Reji.: 0.11 m/s Lateral E' Reji.: 0.10 m/s Pulmonary Valve PV Peak Reji.: 1.02 m/s PV Peak Gr.: 4.19 mmHg Tricuspid Valve RAP Estimate: 5.00 mmHg TR Peak Gr.: 22.84 mmHg RVSP: 27.84 mmHg PA Pressure: 27.84 mmHg Left Ventricle The left ventricle is normal size. There is normal LV segmental wall motion. There is normal left ventricular wall thickness. Left ventricular systolic function is normal. The left ventricular ejection fraction is within the normal range. LVEF is 55-60%. Grade I - abnormal relaxation pattern. Right Ventricle The right ventricle is normal size. The right ventricular systolic function is normal. Atria The left atrium size is normal. The right atrium size is normal. Aortic Valve Mild aortic valve sclerosis. Mild aortic regurgitation. There is no aortic valvular stenosis. Mitral Valve The mitral valve is normal in structure. Mild mitral regurgitation. No evidence of mitral valve stenosis. Tricuspid Valve The tricuspid valve is normal in structure. Mild [place]icus[place] [address] 2 D/M-MODE ECHOCARDIOGRAM Name: SOPHIE GOLDBERG Room: [facility]#: [id number] Admission: 11/21/21 Attend Phys: Mirela Chong RN Discharge: Date of : 37 Date of Service: 11/21/21 1347 Report #: [id number] Pulmonic Valve The pulmonary valve is normal in structure. Mild pulmonic regurgitation. Great Vessels The aortic root is normal in size. IVC is normal in size and collapses >50% with inspiration. Pericardium There is no pericardial effusion. <Conclusion> LVEF is 55-60%. Grade I - abnormal relaxation pattern. There is normal left ventricular wall thickness. The left ventricle is normal size. There is normal LV segmental wall motion. Mild aortic valve sclerosis. Mild aortic regurgitation. There is no aortic valvular stenosis. Mild mitral regurgitation. Mild tricuspid regurgitation. Mild pulmonic regurgitation. IVC is normal in size and collapses >50% with inspiration. There is no pericardial effusion. <ELECTRONICALLY SIGNED> By: Juni Valdovinos MD, FACC 11/21/21 1347 46 134 Juni Valdovinos MD, FACC /INF
== END ==
LOC: M.CRD 12:07
PROVIDERS: ATTEND Registered Nurse
DX: I08.8 Other rheumatic multiple valve diseases (principal); I31.3 Pericardial effusion (noninflammatory)